=== PATIENT | female | born 1980 | race Caucasian/White ===

== ENCOUNTER 2021-12-26 05:57 | Emergency (ER) | payer MEDICAID, SELFPAY ==
--- NOTE | 2021-12-26 05:54 | ECG_ITS ---
APPROVED REPORT Exam: Resting ECG HR:55 bpm ECG Measurements Heart Rate 55 AXES CA 139 P 69 QRSd 101 QRS 78 QT 433 T 63 QTc 422 Conclusion SINUS BRADYCARDIA BORDERLINE ECG UNCONFIRMED REPORT Electronically signed by : Rajinder Yee MD 12/26/2021 14:53:22
--- NOTE | 2021-12-26 06:00 | PC.NURSE ---
Pt declines Covid-19 test at this time
--- NOTE | 2021-12-26 06:07 | PC.NURSE ---
at speaking with pt about POC
[2021-12-26 06:12] VITALS: BP 129/85; PULSE 57; RESP 18; TEMP 36.7; O2SAT 98; BMI 36.6
[2021-12-26 06:16] LABS: Appearance,Urine CLEAR (Clear); Bilirubin,Urine Negative (Negative); Blood, Urine 3+ (Negative); Color,Urine YELLOW (Yellow); Glucose,Urine (UA) Negative (Negative); Ketones,Urine Negative (Negative); Leukocyte Esterase,Urine TRACE (Negative); Microscopic, Urine URINE MICROSCOPIC (MICROSCOPIC); Nitrate,Urine Negative (Negative); Protein,Urine Negative (Negative); Specific Gravity, Urine 1.025 (1.005-1.030); Urobilinogen,Urine 0.2 EU/dl (0.2)
--- NOTE | 2021-12-26 06:18 | HMH.EDGENADL ---
ED Disposition Clinical Impression: Dental abscess, Trichomoniasis Disposition: Still a Patient Condition on Discharge: Good Instructions: Trichomoniasis, Tooth Abscess Additional Instructions: Please pick out hand your prescription for your antibiotics at the pharmacy. Follow-up with dentistry. It is important that you see them soon as possible. You also had trichomonas in your urine today. This is a sexually transmitted infection. We provided antibiotics to you and a prescription. Your partner(s) will also need to be treated. 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 Otherwise, you may take Tylenol and ibuprofen. Do not drive or operate heavy machinery while taking narcotic pain medications. Return to the emergency department for any new or worsening symptoms. Prescriptions: Hydrocod/Acet 5/325 mg [[place] 5/325mg tablet] 1 tab PO Q6HP PRN #12 tab PRN Reason: Moderate To Severe Pain Transmission Status: Received by [facility] clindamycin HCL [Clindamycin HCl] 300 mg PO TID 7 Days #21 cap Transmission Status: Pending to [facility] metroNIDAZOLE [Metronidazole] 500 mg PO BID 7 Days #14 tab Transmission Status: Received by [facility] Chlorhexidine Gluconate [Peridex] 15 ml MM TID 7 Days #350 ml Transmission Status: Pending to [facility] Ondansetron [Zofran 4mg ODT] 4 mg PO TIDP PRN #12 tab PRN Reason: Nausea And Vomiting Transmission Status: Pending to [facility] Referrals: Provider,Referral, MD [Primary Care Provider] - - Critical Care Critical Care Time: No Attestation: On , the high probability of a clinically significant, sudden or life threatening deterioration of the following system(s) required my full and direct attention, intervention and personal management. The time I documented below is in addition to time spent performing reported procedures but includes the following listed in this critical care notation. Medical Decision Making - Tan Inquiry Pt receiving controlled substance: Yes Tan was queried for this patient: Yes Risks and benefits of using a controlled substance: were discussed with pt by me Vital Signs: 12/26/21 06:12 12/26/21 06:31 Temperature 98.0 F Temperature Source Oral Pulse Rate 56 L Pulse Rate [Apical] 57 L Respiratory Rate 18 Blood Pressure 113/74 Blood Pressure [Right Arm] 129/85 Blood Pressure Mean [Right Arm] 99 Blood Pressure Source [Right Arm] Automatic Cuff Blood Pressure Position [Right Arm] Sitting 02 Sat by Pulse Oximetry 98 98 Oxygen Delivery Method Room Air Room Air - Lab Data Lab Results 12/26/21 06:00: WBC 10.0, RBC 4.64, Hgb 13.7, Hct 44.1, MCV 95.0, MCH 29.6, MCHC 31.1 L, RDW 14.2, Plt Count 315, MPV 7.9, Neut % (Auto) 64.2, Lymph % (Auto) 21.5, [place] % (Auto) 5.6, Eos % (Auto) 7.9, Baso % (Auto) 0.8, Neut # (Auto) 6.4, Lymph # (Auto) 2.1, [place] # (Auto) 0.6, Eos # (Auto) 0.8 H, Baso # (Auto) 0.1 12/26/21 06:00: Sodium 140, Potassium 4.1, Chloride 104, Carbon Dioxide 30, Anion Gap 10.1, BUN 7, Creatinine 0.90, Estimated Creat Clear 118, Estimated GFR 69, Est GFR ( Amer) 83, Glucose 117 H, Calcium 9.3, Troponin I < 0.01 12/26/21 06:06: Urine Color Yellow, Urine Appearance Clear, Urine pH 6.0, Ur Specific [place] 1.025, Urine Protein Negative, Urine Glucose (UA) Negative, Urine Ketones Negative, Urine Blood 3+, Urine Nitrate Negative, Urine Bilirubin Negative, Urine Urobilinogen 0.2, Ur Leukocyte Esterase Trace, Urine RBC 3-5, Urine WBC 3-5, Ur Squamous Epith Cells 5-10, Urine Bacteria Trace, Urine Trichomonas Occasional Result diagrams: 12/26/21 06:00 12/26/21 06:00 Orders (Tests/Meds): ED MEDICATIONS Discontinued Medications Generic Name Dose Route Start Last Admin Trade Name Freq PRN Reason Stop Dose Admin Hydrocodone Bitart/Acetaminophen 1 tab 12/26/21 06:12 12/26/21 06:23 Hydrocodone/Apap 5/325 Mg Ta
[2021-12-26 06:28] LABS: Bacteria,Urine Trace /lpf
[2021-12-26 06:29] LABS: Trichomonas,Urine Occasional /lpf
[2021-12-26 06:31] VITALS: BP 113/74; PULSE 56; O2SAT 98
[2021-12-26 06:33] LABS: Anion Gap 10.1 mEq/L (5-15); Blood Urea Nitrogen 7 mg/dl (7-17); Calcium 9.3 mg/dl (8.4-10.2); Carbon Dioxide 30 mmol/L (22.0-30.0); Chloride 104 mmol/L (98-107); Creatinine Clearance Estimated 118 mL/min (50-200); Estimated Glomerular Filt Rate 69 ml/min (>60); GFR (African American) 83 ML/MIN (>60); Glucose 117 mg/dl (74-100); Potassium 4.1 mmoL/L (3.5-5.1); Sodium 140 mmol/L (136-145)
[2021-12-26 06:35] LABS: Basophils # 0.1 K/mm3 (0-0.2); Basophils % 0.8 % (0.1-2.0); Eosinophils # 0.8 K/mm3 (0.0-0.4); Eosinophils % 7.9 % (0.1-12.0); Hematocrit 44.1 % (37.0-47.0); Hemoglobin 13.7 g/dL (12.2-16.2); Lymphocytes # 2.1 K/mm3 (0.7-4.5); Lymphocytes % 21.5 % (10-50); Mean Corpuscular HGB Conc 31.1 g/dL (31.8-35.4); Mean Corpuscular Hemoglobin 29.6 pg (27.0-31.2); Mean Platelet Volume 7.9 fl (7.4-10.4); Monocytes # 0.6 K/mm3 (0.1-1.0); Monocytes % 5.6 % (1.7-9.3); Neutrophils # 6.4 K/mm3 (1.8-7.8); Neutrophils % 64.2 % (37.0-80.0); Platelet Count 315 K/mm3 (142-424); Red Blood Count 4.64 M/mm3 (4.20-5.40); Red Cell Distribution Width 14.2 % (11.5-17.5)
[2021-12-26 06:53] LABS: Troponin I < 0.01 ng/ml (0.00-0.034)
[2021-12-26 07:30] VITALS: BP 115/74; PULSE 63; RESP 16; O2SAT 96
[2021-12-26 07:58] VITALS: BP 129/74; PULSE 74; RESP 16; TEMP 36.7; O2SAT 98
== END 2021-12-26 07:59 | disposition still patient (30) ==
PROVIDERS: Emergency Provider Emergency Medicine
DX: K04.7 Periapical abscess without sinus (principal); A59.9 Trichomoniasis, unspecified; R07.9 Chest pain, unspecified; I49.9 Cardiac arrhythmia, unspecified; Z79.1 Long term (current) use of non-steroidal anti-inflammatories (NSAID); Z79.899 Other long term (current) drug therapy; Z88.0 Allergy status to penicillin
CPT/HCPCS: 40800; 80048; 81001; 84484; 85025; 93005; 96374; 99285